=== PATIENT | female | born 1965 | race Caucasian/White ===

== ENCOUNTER → 2016-10-08 | Outpatient (CLI) | payer BC ==
--- NOTE | 2016-10-08 16:57 | US ---
EXAMINATION TYPE: US thyroid st tissue head/neck DATE OF EXAM: 10/08/2016 COMPARISON: Previous study dated 04/19/2016. CLINICAL HISTORY: E04.1 Nontoxic single thyroid nodule. GLAND SIZE: Right Lobe: 4.5 x 1.6 x 2.3 cm Overall Parenchyma: homogenous Left Lobe: 4.4 x 1.4 x 1.5 cm Overall Parenchyma: homogeneous Isthmus Thickness: 0.32 cm NODULES RIGHT: # of nodules measured on right: 2 1. .9 X .6 x .9 cm hypoechoic solid nodule at the mid pole with well-defined margins; This nodule i s wider than tall and shows intranodular vascularity. Prior size: 1.0 x .6 x .9 cm 2. .3 X .2 x .2 cm hypoechoic solid nodule at the mid pole with well-defined margins. This nodule is wider than tall and shows intranodular vascularity. Prior size: .2 x .2 x .3 cm LEFT: # of nodules measured on left: 2 1. .3 X .2 x .4 cm hypoechoic cystic nodule at the upper pole with well-defined margins; This nodul e is wider than tall and shows intranodular vascularity. Prior size: .4 x .3 x .4 cm 2. .3 X .2 x .3 cm hypoechoic solid nodule at the mid pole with well-defined margins. This nodule i s wider than tall and shows intranodular vascularity. Prior size: .3 x .2 x .3 cm ISTHMUS: # of nodules measured in the isthmus: 0 Bilateral neck scanned, no evidence of lymphadenopathy. IMPRESSION: STABLE MULTINODULAR GOITER.
== END | disposition home or self-care (01) ==
LOC: RADUSWWP 14:05
PROVIDERS: ATTEND Family Medicine
DX: E04.2 Nontoxic multinodular goiter (principal)
CPT/HCPCS: 76536

== ENCOUNTER → 2016-10-11 | Outpatient (CLI) | payer BC ==
[2016-10-11 10:53] LABS: CH 34.2; CHCM 34.3; HCT 39.3 % (34.0-46.0); HDW 2.55; HGB 13.3 gm/dL (11.4-16.0); MCH 33.9 pg (25.0-35.0); MCHC 33.9 g/dL (31.0-37.0); MCV 100.2 fL (80.0-100.0); RBC 3.92 m/uL (3.80-5.40); RDW 12.7 % (11.5-15.5); WBC 6.1 k/uL (3.8-10.6)
[2016-10-11 11:06] LABS: Appearance,Urine Cloudy (Clear); Bacteria,Urine Rare /hpf; Bilirubin,Urine Negative (Negative); Glucose,Urine (UA) Negative (Negative); Ketones,Urine Trace (Negative); Leukocyte Esterase,Urine Negative (Negative); Mucus,Urine Rare /hpf; Nitrite,Urine Negative (Negative); Particle Count 6168; Protein,Urine 1+ (Negative); RBC,Urine 13 /hpf (0-5); Specific Gravity,Urine 1.021 (1.001-1.035); Squamous Epithelial Cell,Urine 16 /hpf (0-4); UA Billing (MACRO vs. MICRO) MICRO; WBC,Urine 1 /hpf (0-5)
[2016-10-11 11:12] LABS: ALT 32 U/L (9-52); AST 25 U/L (14-36); Alkaline Phosphatase 85 U/L (38-126); Anion Gap 10 mmol/L; Blood Urea Nitrogen 17 mg/dL (7-17); Carbon Dioxide 24 mmol/L (22-30); Chloride 107 mmol/L (98-107); Cholesterol 185 mg/dL (<200); Glucose 87 mg/dL (74-99); HDL Cholesterol 77 mg/dL (40-60); Non-African American GFR(MDRD) >60 (>60 ml/min/1.73 sqM); Potassium 4.2 mmol/L (3.5-5.1); Sodium 141 mmol/L (137-145); Total Bilirubin 0.9 mg/dL (0.2-1.3); Total Protein 7.2 g/dL (6.3-8.2); Triglycerides 159 mg/dL (<150)
[2016-10-11 12:00] LABS: Hepatitis C Virus IgG Ab Negative (Negative); Hepatitis C Virus IgG Index 0.01
[2016-10-11 14:04] LABS: Hemoglobin A1C 5.2 % (4.2-6.1)
== END | disposition home or self-care (01) ==
LOC: LABWHC1 10:21
PROVIDERS: ATTEND Family Medicine
DX: Z00.01 Encounter for general adult medical examination with abnormal findings (principal); R31.21 Asymptomatic microscopic hematuria
CPT/HCPCS: 36415; 80053; 80061; 81001; 82306; 83036; 84439; 84443; 85027; 86803; 87086

== ENCOUNTER 2016-11-08 10:07 | Day surgery (SDC) | payer BC ==
[2016-11-05 11:01] VITALS: BMI 30.9
[~2016-11-08 10:07] MED LIST: LACTATED RINGERS 1,000 ML IV SCH
[2016-11-08] MEDS ORDERED: LACTATED RINGERS 1,000 ML IV ONE (10:30)
[2016-11-08] MEDS ORDERED: LIDOCAINE 1% 20 ML VIAL (10MG/ML) FOR IV START INTRADERMA ONE (10:31)
[2016-11-08 10:35] VITALS: RESP 18
[2016-11-08] MEDS ORDERED: PROPOFOL 10 MG/ML 20 ML VIAL IV ONE (11:34)
--- NOTE | 2016-11-08 12:12 | P.PCN ---
Date of Procedure: 11/08/16 Preoperative Diagnosis: Postoperative Diagnosis: Procedure(s) Performed: BRIEF HISTORY: Patient is a 50-year-old pleasant white female, scheduled for an elective colonoscopy as a part of screening for colorectal neoplasia. PROCEDURE PERFORMED: Colonoscopy. PREOPERATIVE DIAGNOSIS: Screening for colon cancer. IV sedation per Anesthesia. PROCEDURE: After informed consent was obtained, the patient, was brought into the endoscopy unit. IV sedation was administered by Anesthesia under continuous monitoring. Digital rectal examination was normal. Initially the Olympus CF- 160 flexible video colonoscope was then inserted in the rectum, gradually advanced into the sigmoid colon and further advancement was not possible because of acute angle duration and this area. The scope was removed and a pediatric colonoscope was then increased the rectum and with moderate to severe difficulty and was gradually advanced into the cecum. Careful examination was performed as the scope was gradually being withdrawn. Ileocecal valve and the appendiceal orifice were visualized and appeared normal. Prep was excellent. Mucosa of the cecum, ascending colon, transverse colon, descending colon, sigmoid colon, and rectum appeared normal. Retroflexion was performed in the rectum and no lesions were seen. The patient tolerated the procedure well. IMPRESSION: Normal-appearing colon from rectum to cecum with no evidence of colorectal neoplasia . RECOMMENDATIONS: Findings of this examination were discussed with the patient as well as a family. She was advised to have a repeat screening colonoscopy in 10 years. Implants: Indications for Procedure: Operative Findings: Description of Procedure:
[2016-11-08 13:17] VITALS: BP 143/67; PULSE 77
[2016-11-08 13:32] VITALS: TEMP 97.5
== END 2016-11-08 13:40 | disposition home or self-care (01) ==
LOC: ORWHC2ENDO 10:07
PROVIDERS: ATTEND Internal Medicine Gastroenterology
DX: Z12.11 Encounter for screening for malignant neoplasm of colon (principal); K57.30 Diverticulosis of large intestine without perforation or abscess without bleeding; K21.9 Gastro-esophageal reflux disease without esophagitis; K58.9 Irritable bowel syndrome, unspecified; I10 Essential (primary) hypertension; J45.909 Unspecified asthma, uncomplicated; Z79.82 Long term (current) use of aspirin; Z79.899 Other long term (current) drug therapy; Z88.0 Allergy status to penicillin; Z88.2 Allergy status to sulfonamides; Z87.891 Personal history of nicotine dependence
CPT/HCPCS: J2704; G0121

== ENCOUNTER → 2017-09-17 | Outpatient (CLI) | payer BC ==
--- NOTE | 2017-09-17 07:36 | MR ---
EXAMINATION TYPE: MR ankle RT wo con DATE OF EXAM: 09/17/2017 COMPARISON: NONE HISTORY: Right ankle pain and instability Standard multiplanar, multisequence MRI of the right ankle was obtained per departmental protocol. FINDINGS: Coronal images are suboptimal due to patient motion. There is a subtle short segment split tear at the level of the medial malleolus of the peroneus longu s with thickening and surrounding fluid of the tendon sheath. There is mild tendinosis of the peroneu s brevis additionally as there is fluid also around the tendon sheath. Minimal tendinosis is also see n of the flexor digitorum longus and flexor hallucis longus no similar findings. Extensor tendons are unremarkable. Achilles tendon and plantar fascia are also unremarkable. There is abnormal bone marrow signal within the base of the third metatarsal extending in the proxima l metatarsal diaphysis as well as within the fourth metatarsal metaphysis and proximal diaphysis and the third cuneiform. No distinct fracture line is identified. There is a partial thickness tear of the anterior talofibular ligament with surrounding small joint e ffusion. Posterior talofibular ligament and deltoid ligament as well as the spring ligaments are inta ct. Nonspecific subcutaneous edema is seen of the lateral distal midfoot and forefoot in its visualized p ortions. Sinus tarsus appears unremarkable. Lisfranc ligament appears intact. Alignment is intact. Sm all plantar enthesophyte is noted. IMPRESSION: 1. Abnormal bone marrow signal of the third cuneiform, base of the third metatarsal and proximal aspe ct of the third metatarsal, and proximal fourth metatarsal without fracture line. Therefore these cou ld relate to osseous contusion or stress injury. There is mild overlying subcutaneous edema. 2. Partial-thickness tear of the anterior talofibular ligament with few fibers remaining and surround ing small joint effusion. 3. Short segment split tear at the level of the medial malleolus of the peroneus longus. 4. Mild tendinosis of the candida is longus, peroneus brevis, flexor digitorum longus and flexor hallu cis longus.
== END | disposition home or self-care (01) ==
LOC: RADMRIMAIN 06:26
PROVIDERS: ATTEND Podiatrist Foot & Ankle Surgery
DX: S93.491A Sprain of other ligament of right ankle, initial encounter (principal); M67.873 Other specified disorders of tendon, right ankle and foot; R93.7 Abnormal findings on diagnostic imaging of other parts of musculoskeletal system

== ENCOUNTER → 2018-01-13 | Outpatient (CLI) | payer BC ==
--- NOTE | 2018-01-14 07:44 | MM ---
Reason for exam: clinical finding. Last mammogram was performed 2 years and 10 months ago. History: Patient is postmenopausal. Family history of breast cancer in maternal aunt at age 52. Took hormonal contraceptives for 15 years beginning at age 16. Taking estrogen for 1 year. Indicated problem(s): palpable abnormality and pain in the right breast. 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 MG Diagnostic Mammo w CAD LELIA Bilateral CC and MLO view(s) were taken. Prior study comparison: February 28, 2015, bilateral MG 3d screening mammo w/cad. May 06, 2013, bilateral digital screening mammo w/CAD. The breast tissue is heterogeneously dense. This may lower the sensitivity of mammography. No significant new findings when compared with previous films. These results were verbally communicated with the patient and result sheet given to the patient on 01/13/18. ASSESSMENT: Benign, BI-RAD 2 RECOMMENDATION: Routine screening mammogram of both breasts in 1 year.
--- NOTE | 2018-01-14 07:46 | USB ---
Reason for exam: clinical finding. History: Patient is postmenopausal. Family history of breast cancer in maternal aunt at age 52. Took hormonal contraceptives for 15 years beginning at age 16. Taking estrogen for 1 year. Indicated problem(s): palpable abnormality and pain in the right breast. US Breast RT Right complete breast ultrasound includes all four quadrants, the retroareolar region and axilla. Finding demonstrates a 0.8 x 0.9 x 0.4cm oval, mixed lesion at 12 o'clock, a 0.4 x 0.4 x 0.2cm oval, lobular lesion too small to characterize at 2 o'clock, a 0.6 x 0.5 x 0.3cm irregular, cystic lesion at 9 o'clock, duct ectasia at 11 o'clock and posterior nipple. These results were verbally communicated with the patient and result sheet given to the patient on 01/13/18. ASSESSMENT: Probably benign, BI-RAD 3 RECOMMENDATION: Ultrasound of the right breast in 6 months.
== END | disposition home or self-care (01) ==
LOC: RADMAMWWP 13:41
PROVIDERS: ATTEND Obstetrics & Gynecology
DX: N64.4 Mastodynia (principal)
CPT/HCPCS: 77066

== ENCOUNTER → 2018-01-13 | Outpatient (CLI) | payer BC ==
[2018-01-13 16:14] LABS: HCT 35.8 % (34.0-46.0); HGB 12.1 gm/dL (11.4-16.0); MCH 33.1 pg (25.0-35.0); MCHC 33.9 g/dL (31.0-37.0); MCV 97.8 fL (80.0-100.0); Mean Platelet Volume 7.8; Platelet Count 244 k/uL (150-450); RBC 3.66 m/uL (3.80-5.40); RDW 12.4 % (11.5-15.5); WBC 7.8 k/uL (3.8-10.6)
[2018-01-13 16:31] LABS: ALT 28 U/L (9-52); AST 30 U/L (14-36); Anion Gap 8 mmol/L; Blood Urea Nitrogen 22 mg/dL (7-17); Calcium 9.9 mg/dL (8.4-10.2); Carbon Dioxide 28 mmol/L (22-30); Chloride 102 mmol/L (98-107); Glucose 76 mg/dL (74-99); Potassium 3.7 mmol/L (3.5-5.1); Sodium 138 mmol/L (137-145)
[2018-01-13 16:45] LABS: T4, Free (Free Thyroxine) 0.86 ng/dL (0.78-2.19)
== END | disposition home or self-care (01) ==
LOC: LABWHC1 13:44
PROVIDERS: ATTEND Family Medicine
DX: E04.9 Nontoxic goiter, unspecified (principal); I10 Essential (primary) hypertension
CPT/HCPCS: 36415; 80048; 84439; 84443; 84450; 84460; 85027

== ENCOUNTER → 2018-01-28 | Outpatient (CLI) | payer OTHER ==
--- NOTE | 2018-01-28 16:58 | XR ---
EXAMINATION TYPE: XR Hip Complete LT DATE OF EXAM: 01/28/2018 COMPARISON: NONE HISTORY: Hip pain TECHNIQUE: 2 views FINDINGS: I see no fracture nor dislocation. Hip joint space is normal. Sacroiliac joint appears norm al. IMPRESSION: Normal left hip exam
== END | disposition home or self-care (01) ==
LOC: RADXRMAIN 16:37
PROVIDERS: ATTEND Emergency Medicine
DX: M25.552 Pain in left hip (principal)
CPT/HCPCS: 73502

== ENCOUNTER → 2018-03-09 | Outpatient (CLI) | payer BC ==
--- NOTE | 2018-03-09 22:52 | US ---
EXAMINATION TYPE: US thyroid st tissue head/neck DATE OF EXAM: 03/09/2018 COMPARISON: 10/08/2016 CLINICAL HISTORY: 52-year-old female E04.9 nontoxic nodular goiter. Follow up thyroid nodules, histor y of thyroid FNA TECHNIQUE: Multiple sonographic images of the thyroid gland are obtained. FINDINGS: GLAND SIZE: Right Lobe: 4.4 x 1.8 x 1.8 cm Overall Parenchyma: homogenous Left Lobe: 3.9 x 1.5 x 1.4 cm Overall Parenchyma: homogeneous Isthmus Thickness: 0.4 cm NODULES RIGHT: # of nodules measured on right: 2 1. 0.9 X 0.6 x 0.9 cm hypoechoic solid nodule at the mid pole with well-defined margins. This nodul e is wider than tall and shows intranodular vascularity. Prior size: 0.9 x 0.6 x 0.9 cm 2. 0.3 X 0.2 x 0.3 cm hypoechoic solid nodule at the mid pole with well-defined margins. This nodule is wider than tall and shows intranodular vascularity. Prior size: 0.3 x 0.2 x 0.2 cm LEFT: # of nodules measured on left: 2 1. 6 x 4 x 3 mm elongated cystic nodule at the mid to upper pole with well-defined margins. Possible colloid cyst. This nodule is wider than tall and shows intranodular vascularity. Prior size: 4 x 3 x 2 mm 2. 5 x 4 x 3 mm hypoechoic solid nodule at the mid pole with well-defined margins. This nodule is wid er than tall and shows intranodular vascularity. Prior size: 3 x 3 x 2 mm ISTHMUS: # of nodules measured in the isthmus: 0 Bilateral neck scanned, no evidence of lymphadenopathy. IMPRESSION: 2 nodules on each side, dominant nodule measuring 9 mm on the right is not significantly changed. Sec ond largest nodule measures 6 mm and may represent a colloid cyst of the left.
== END | disposition home or self-care (01) ==
LOC: RADUSWWP 13:36
PROVIDERS: ATTEND Family Medicine
DX: E04.2 Nontoxic multinodular goiter (principal)
CPT/HCPCS: 76536

== ENCOUNTER → 2018-09-15 | Outpatient (CLI) | payer BC ==
[2018-09-15 12:32] LABS: HCT 38.9 % (34.0-46.0); HGB 12.9 gm/dL (11.4-16.0); MCH 31.6 pg (25.0-35.0); MCHC 33.3 g/dL (31.0-37.0); MCV 94.9 fL (80.0-100.0); Mean Platelet Volume 8.6; Platelet Count 243 k/uL (150-450); RBC 4.09 m/uL (3.80-5.40); RDW 12.7 % (11.5-15.5); WBC 5.9 k/uL (3.8-10.6)
[2018-09-15 15:55] LABS: LDL Cholesterol,Calculated 93.6 mg/dL (0.0-131.0); Potassium 4.2 mmol/L (3.5-5.5); VLDL Calculation 24.4 mg/dL (5.00-40.00)
== END ==
LOC: LABWHC1 10:09
PROVIDERS: ATTEND Family Medicine
DX: I10 Essential (primary) hypertension (principal); E78.00 Pure hypercholesterolemia, unspecified
CPT/HCPCS: 36415; 80048; 80061; 84450; 84460; 85027

== ENCOUNTER → 2019-03-04 | Outpatient (CLI) | payer BC ==
--- NOTE | 2019-03-04 13:43 | US ---
EXAMINATION TYPE: US thyroid st tissue head/neck DATE OF EXAM: 03/04/2019 COMPARISON: US CLINICAL HISTORY: E04.9 NONTOXIC GOITER. GLAND SIZE: Right Lobe: 3.7 x 1.6 x 1.8 cm Overall Parenchyma: homogenous Left Lobe: 4.5 x 1.7 x 1.7 cm Overall Parenchyma: homogeneous Isthmus Thickness: 0.5 cm NODULES RIGHT: # of nodules measured on right: 2 1. 0.8 X 0.6 x 0.9 cm isoechoic solid nodule at the upper pole with well-defined margins; present w ith microcalcifications. This nodule is wider than tall and shows intranodular vascularity. Prior size: 0.9 x 0.6 x 0.9 cm 2. 0.3 X 0.2 x 0.3 cm hypoechoic solid nodule at the upper pole with well-defined margins; . This n odule is wider than tall and shows no intranodular vascularity. Prior size: 0.2 x 0.2 x 0.3 cm LEFT: # of nodules measured on left: 2 1. 0.5 X 0.3 x 0.5 cm hypoechoic cystic nodule at the upper pole with well-defined margins; . This nodule is wider than tall and shows no intranodular vascularity. Prior size: 0.5 x 0.3 x 0.4 cm 2. 0.3 X 0.3 x 0.4 cm hypoechoic solid nodule at the upper pole with well-defined margins; . This n odule is wider than tall and shows no intranodular vascularity. Prior size: 0.4 x 0.3 x 0.6 cm ISTHMUS: # of nodules measured in the isthmus: 0 Bilateral neck scanned. Bilateral nodes noted, largest measures 1.6 x 0.4 cm on the right. IMPRESSION: Stable nonspecific nodularity.
--- NOTE | 2019-03-04 14:38 | MM ---
Reason for exam: additional evaluation requested from prior study. Last mammogram was performed 1 year and 2 months ago. History: Patient is postmenopausal. Family history of breast cancer in maternal aunt at age 52. Took hormonal contraceptives for 15 years beginning at age 16. Taking estrogen for 1 year. MG Diagnostic Mammo w CAD LELIA Bilateral CC and MLO view(s) were taken. Prior study comparison: January 13, 2018, bilateral MG diagnostic mammo w CAD LELIA. February 28, 2015, bilateral MG 3d screening mammo w/cad. The breast tissue is heterogeneously dense. This may lower the sensitivity of mammography. There is chronic nodularity bilaterally. No significant new findings when compared with previous films. These results were verbally communicated with the patient and result sheet given to the patient on 03/04/19. ASSESSMENT: Benign, BI-RAD 2 RECOMMENDATION: Routine screening mammogram of both breasts in 1 year.
== END ==
LOC: RADUSWWP 13:11
PROVIDERS: ATTEND Family Medicine
DX: R92.8 Other abnormal and inconclusive findings on diagnostic imaging of breast (principal); E04.9 Nontoxic goiter, unspecified
CPT/HCPCS: 76536; 77066

== ENCOUNTER → 2019-03-20 | Outpatient (CLI) | payer BC ==
[2019-03-20 10:33] LABS: HCT 38.1 % (34.0-46.0); HGB 13.1 gm/dL (11.4-16.0); MCH 33.3 pg (25.0-35.0); MCHC 34.5 g/dL (31.0-37.0); MCV 96.6 fL (80.0-100.0); Mean Platelet Volume 7.9; Platelet Count 244 k/uL (150-450); RBC 3.94 m/uL (3.80-5.40); RDW 12.1 % (11.5-15.5)
[2019-03-20 11:25] LABS: Appearance,Urine Clear (Clear); Bilirubin,Urine Negative (Negative); Blood,Urine Small (Negative); Color,Urine Yellow; Glucose,Urine (UA) Negative (Negative); Ketones,Urine Negative (Negative); Leukocyte Esterase,Urine Negative (Negative); Mucus,Urine Rare /hpf; Nitrite,Urine Negative (Negative); PH, Urine 6.5 (5.0-8.0); Protein,Urine Negative (Negative); RBC,Urine 6 /hpf (0-5); Specific Gravity,Urine 1.015 (1.001-1.035); Squamous Epithelial Cell,Urine 2 /hpf (0-4); Urobilinogen,Urine <2.0 mg/dL (<2.0)
[2019-03-20 17:15] LABS: African American GFR (CKD) 126.3 (60.0-200.0); Albumin 4.3 g/dL (3.80-4.90); Albumin/Globulin Ratio 2.15 (1.60-3.17); Calcium 9.6 mg/dL (8.7-10.3); Chol/HDL Ratio 2.43; LDL Cholesterol,Calculated 69.6 mg/dL (0.0-131.0); Potassium 4.3 mmol/L (3.5-5.5); Total Bilirubin 0.5 mg/dL (0.3-1.2); Total Protein 6.3 g/dL (6.2-8.2); VLDL Calculation 36.4 mg/dL (5.00-40.00)
[2019-03-20 17:35] LABS: T4, Free (Free Thyroxine) 0.9 ng/dL (0.80-1.80)
[2019-03-22 10:19] LABS: Hemoglobin A1C 5.2 % (4.0-6.0)
== END | disposition home or self-care (01) ==
LOC: LABWHC1 09:45
PROVIDERS: ATTEND Family Medicine
DX: Z00.01 Encounter for general adult medical examination with abnormal findings (principal); E04.2 Nontoxic multinodular goiter; E66.3 Overweight
CPT/HCPCS: 36415; 80053; 80061; 81001; 82306; 83036; 84439; 84443; 85027

== ENCOUNTER → 2019-11-02 | Outpatient (CLI) | payer BC ==
--- NOTE | 2019-11-02 15:17 | US ---
EXAMINATION TYPE: US thyroid st tissue head/neck DATE OF EXAM: 11/02/2019 COMPARISON: NONE CLINICAL HISTORY: E04.9 NONTOXIC GOITER. GLAND SIZE: Right Lobe: cm Overall Parenchyma: Left Lobe: cm Overall Parenchyma: Isthmus Thickness: cm NODULES RIGHT: # of nodules measured on right: 1. X x cm nodule at the pole with margins; . This nodule is and shows . Prior size: x x cm 2. X x cm nodule at the pole with margins; . This nodule is and shows . Prior size: x x cm 3. X x cm nodule at the pole with margins; . This nodule is and shows . Prior size: x x cm 4. X x cm nodule at the pole with margins; . This nodule is and shows . Prior size: x x cm LEFT: # of nodules measured on left: 1. X x cm nodule at the pole with margins; . This nodule is and shows . Prior size: x x cm 2. X x cm nodule at the pole with margins; . This nodule is and shows . Prior size: x x cm 3. X x cm nodule at the pole with margins; . This nodule is and shows . Prior size: x x cm 4. X x cm nodule at the pole with margins; . This nodule is and shows . Prior size: x x cm ISTHMUS: # of nodules measured in the isthmus: 1. X x cm nodule at the pole with margins; . This nodule is and shows . Prior size: x x cm Bilateral neck scanned, no evidence of lymphadenopathy. IMPRESSION: EXAMINATION TYPE: US thyroid st tissue head/neck DATE OF EXAM: 11/02/2019 COMPARISON: NONE CLINICAL HISTORY: E04.9 NONTOXIC GOITER. GLAND SIZE: Right Lobe: 4.0 x 2.1 x 1.8 cm Overall Parenchyma: homogenous Left Lobe: 4.7 x 1.0 x 1.5 cm Overall Parenchyma: homogeneous Isthmus Thickness: 0.2 cm NODULES RIGHT: # of nodules measured on right: 2 1. 0.7 x 0.5 x 0.7 cm isoechoic solid nodule at the mid pole with well-defined margins. This nodule is wider than tall and shows intranodular vascularity. Prior size: 0.8 x 0.6 x 0.9 cm 2. 0.2 X 0.2 x 0.2 cm hypoechoic solid nodule at the mid pole with well-defined margins. This nodul e is wider than tall and shows no intranodular vascularity. Prior size: 0.3 x 0.2 x 0.3 cm LEFT: # of nodules measured on left: 1 1. 0.4 X 0.3 x 0.3 cm anechoic cystic nodule at the upper pole with well-defined margins. This nod ule is wider than tall and shows no intranodular vascularity. Prior size: 0.5 x 0.3 x 0.5 cm ISTHMUS: # of nodules measured in the isthmus: 0 Bilateral neck scanned, no evidence of lymphadenopathy. Previous subcentimeter nodule seen on left not seen on today's ultrasound. IMPRESSION: 1. Bilateral subcentimeter nodules. 2. A new subcentimeter nodule may be present on the left.
== END | disposition home or self-care (01) ==
LOC: RADUSWWP 13:12
PROVIDERS: ATTEND Family Medicine
DX: E04.2 Nontoxic multinodular goiter (principal)
CPT/HCPCS: 76536

== ENCOUNTER → 2020-01-04 | Outpatient (CLI) | payer BC ==
[2020-01-04 11:28] LABS: HCT 41.4 % (34.0-46.0); HGB 13.3 gm/dL (11.4-16.0); MCH 32.4 pg (25.0-35.0); MCHC 32.2 g/dL (31.0-37.0); MCV 100.6 fL (80.0-100.0); Mean Platelet Volume 8.5; Platelet Count 231 k/uL (150-450); RBC 4.12 m/uL (3.80-5.40); RDW 12.1 % (11.5-15.5); WBC 8.9 k/uL (3.8-10.6)
[2020-01-04 18:57] LABS: African American GFR (CKD) 118.1 (60.0-200.0); Anion Gap 6.6 mmol/L (4.00-12.00); BUN/Creat Ratio 21.67 Ratio (12.00-20.00); Calcium 9.6 mg/dL (8.7-10.3); Carbon Dioxide 27.4 mmol/L (21.6-31.8); Chol/HDL Ratio 2.63; LDL Cholesterol,Calculated 81.8 mg/dL (0.0-131.0); Non-African American GFR(CKD) 101.9 (60.0-200.0); Potassium 4.3 mmol/L (3.5-5.5); VLDL Calculation 37.2 mg/dL (5.00-40.00)
[2020-01-04 19:06] LABS: T4, Free (Free Thyroxine) 0.9 ng/dL (0.80-1.80)
== END | disposition home or self-care (01) ==
LOC: LABWHC1 09:46
PROVIDERS: ATTEND Family Medicine
DX: E04.9 Nontoxic goiter, unspecified (principal); E78.00 Pure hypercholesterolemia, unspecified; I10 Essential (primary) hypertension
CPT/HCPCS: 36415; 80048; 80061; 84439; 84443; 84450; 84460; 85027

== ENCOUNTER → 2020-04-11 | Outpatient (CLI) | payer BC ==
--- NOTE | 2020-04-11 15:07 | CT ---
EXAMINATION TYPE: CT urogram wo/w con DATE OF EXAM: 04/11/2020 COMPARISON: 08/31/2012 HISTORY: Right flank pain. CT DLP: 2642 mGycm CONTRAST: Performed and without and with IV Contrast, patient injected with 100 mL of Isovue M300. CT Urography was performed with unenhanced followed by enhanced images of the kidneys, ureters and ur inary bladder. Delayed images were obtained. 3d reconstruction was performed at a separate work sta tion. FINDINGS: KIDNEYS/BLADDER: No hydronephrosis. No nephrolithiasis. No distinct renal mass. Urinary bladder gr ossly unremarkable. LUNG BASES-: No visible nodule. No infiltrate. There is a moderate fixed hiatal hernia identified. LIVER/GB: No calcified gallstones. No space occupying hepatic lesion. Biliary tree is of normal ca liber. PANCREAS: No inflammation. No distinct mass. SPLEEN: No splenic enlargement. No lesion seen. ADRENALS: No nodule. No thickening. BOWEL: Normal appendix. Normal bowel caliber. No inflammation. GENITAL ORGANS: No gross abnormality. LYMPH NODES: No greater than 1cm abdominal or pelvic lymph nodes are appreciated. AORTA: No significant abnormality. OSSEOUS STRUCTURES: No significant abnormality is seen. OTHER: No significant additional abnormality is seen. IMPRESSION: 1. No renal pathology identified.
== END | disposition home or self-care (01) ==
LOC: RADCTMAIN 13:11
PROVIDERS: ATTEND Family Medicine
DX: R10.9 Unspecified abdominal pain (principal)
CPT/HCPCS: 74178; 74400; Q9967

== ENCOUNTER → 2020-12-15 | Outpatient (CLI) | payer BC ==
[2020-12-15 16:52] LABS: HCT 38.4 % (37.2-46.3); HGB 12.9 g/dL (12.0-15.0); MCH 32.9 pg (27.0-32.0); MCHC 33.6 g/dL (32.0-37.0); Mean Platelet Volume 11.7 fL (9.5-12.2); Platelet Count 245 X 10*3/uL (140-440); RBC 3.92 X 10*6/uL (4.10-5.20); RDW 12.1 % (11.5-14.5)
[2020-12-15 19:32] LABS: African American GFR (CKD) 117.3 (60.0-200.0); Anion Gap 9.7 mmol/L (4.00-12.00); BUN/Creat Ratio 33.33 Ratio (12.00-20.00); Calcium 9.4 mg/dL (8.7-10.3); Carbon Dioxide 25.3 mmol/L (21.6-31.8); Chol/HDL Ratio 3.04; LDL Cholesterol,Calculated 121.4 mg/dL (0.0-131.0); Non-African American GFR(CKD) 101.2 (60.0-200.0); Potassium 4.3 mmol/L (3.5-5.5); VLDL Calculation 23.6 mg/dL (5.00-40.00)
[2020-12-15 20:34] LABS: Hemoglobin A1C 5.1 % (4.0-6.0)
== END | disposition home or self-care (01) ==
LOC: LABWHC1 09:05
PROVIDERS: ATTEND Family Medicine
DX: E78.00 Pure hypercholesterolemia, unspecified (principal); E66.3 Overweight; I10 Essential (primary) hypertension
CPT/HCPCS: 36415; 80048; 80061; 83036; 84450; 84460; 85027

== ENCOUNTER 2024-01-04 23:52 | Emergency (ER) | payer BC, OTHER ==
[2024-01-05 00:05] VITALS: TEMP 97.8
--- NOTE | 2024-01-05 02:08 | ED ---
General Adult HPI - General Chief complaint: Fall Stated complaint: Arm Injury Time Seen by Provider: 01/05/24 00:05 Source: patient Mode of arrival: ambulatory Limitations: no limitations - History of Present Illness Initial comments: 58-year-old female presents as a transfer from [facility]. Patient was ambulating when she tripped on a low ridge and fell onto concrete. She fell on an outstretched right hand. She sustained a right wrist fracture. This was reduced at [facility]. They did not have hand orthopedics for follow- up and therefore transferred the patient to our hospital. Patient arrives in a sugar-tong splint. She has pain which is controlled. She denies any numbness or tingling into her fingers. No other injury sustained. No other alleviating, precipitating or modifying factors - Related Data Home Medications Medication Instructions Recorded Confirmed Atorvastatin [Lipitor] 10 mg PO HS 04/04/15 11/05/16 Cetirizine HCl [Zyrtec] 10 mg PO DAILY 04/04/15 11/05/16 HYDROcodone/APAP 10-325MG [[place] 1 tab PO Q6H PRN 04/04/15 11/05/16 10-325] Omeprazole [PriLOSEC] 20 mg PO AC-BRKFST 04/04/15 11/05/16 Venlafaxine HCl ER [Effexor Xr] 150 mg PO DAILY 04/04/15 11/05/16 Verapamil HCl [Verelan] 180 mg PO BID 04/04/15 11/05/16 hydroCHLOROthiazide [Hydrodiuril] 25 mg PO DAILY 04/04/15 11/05/16 lisinopriL [Zestril] 5 mg PO BID 04/04/15 11/05/16 ALPRAZolam [Xanax] 0.5 mg PO BID PRN 11/05/16 11/05/16 Aspirin [Adult Low Dose Aspirin EC] 81 mg PO DAILY 11/05/16 11/05/16 Multivitamins, Thera [Multivitamin 1 tab PO DAILY 11/05/16 11/05/16 (formulary)] Potassium 99 mg PO DAILY 11/05/16 11/05/16 Venlafaxine HCl [Effexor] 75 mg PO DAILY 11/05/16 11/05/16 estradioL [Estrace] 1 mg PO DAILY 11/05/16 11/05/16 Previous Rx's Medication Instructions Recorded HYDROcodone/APAP 7.5-325MG [[place] 1 tab PO Q4HR PRN 3 Days #18 tab 01/05/24 7.5-325] Allergies Allergy/AdvReac Type Severity Reaction Status Date / Time perfume Allergy Dyspnea Verified 11/05/16 10:48 Sulfa (Sulfonamide Allergy Rash/Hives Verified 11/05/16 10:48 Antibiotics) codeine AdvReac made skin Verified 11/05/16 10:48 crawl Penicillins AdvReac Diarrhea Verified 11/05/16 10:48 Review of Systems ROS Statement: Those systems with pertinent positive or pertinent negative responses have been documented in the HPI. ROS Other: All systems not noted in ROS Statement are negative. Past Medical History Past Medical History: COPD, GERD/Reflux, Hyperlipidemia, Hypertension, Osteoarthritis (OA), Thyroid Disorder Additional Past Medical History / Comment(s): colitis with IBS, goiters, History of Any Multi-Drug Resistant Organisms: None Reported Past Surgical History: Back Surgery, Hysterectomy, Orthopedic Surgery, Tubal Ligation Additional Past Surgical History / Comment(s): eye surgery as child, sinus surgery, colonoscopy, lasik eye surgery, right ankle ortho and bilateral knee. Past Anesthesia/Blood Transfusion Reactions: Motion Sickness Past Psychological History: Anxiety Smoking Status: Never smoker Past Alcohol Use History: Occasional Past Drug Use History: None Reported - Past Family History Mother Family Medical History: Cancer General Exam Limitations: no limitations General appearance: alert Head exam: Present: atraumatic, normocephalic, normal inspection Eye exam: Present: normal appearance, PERRL, EOMI. Absent: scleral icterus, conjunctival injection, periorbital swelling ENT exam: Present: normal exam, mucous membranes moist Extremities exam: Present: other (Sugar-tong splint to the right hand and forearm. Cap refill of fingers is less than 3 seconds. She is able to move all fingers equally. Intact sensation in the median, radial and ulnar nerve distributions) Course Vital Signs 01/05/24 01/05/24 00:01 03:06 Temperature 97.8 F Pulse Rate 80 78 Respiratory 20 16 Rate Blood Pressure 143/73 148/75 O2 Sat by Pulse 95 96 Oximetry Medical Decision Making - Medical Decision Making Was pt. sent in by a medical professional or institution (Dr., PA, TMD TEACHER ASSISTANT, urgent care, hospital, or intermediate...) When possible be specific @ -Patient was sent over from [facility] Did you speak to anyone other than the patient for history (EMS, parent, family, police, friend...)? What history was obtained from this source @ -I spoke with the transferring physician Did you review nursing and triage notes (agree or disagree)? Why? @ -I reviewed and agree with nursing and triage notes Were old charts reviewed (outside hosp., previous admission, EMS record, old EKG, old radiological studies, urgent care reports/EKG's, intermediate records)? Report findings @ -I reviewed the report from [facility] emergency department which was completed earlier today Differential Diagnosis (chest pain, altered mental status, abdominal pain women, abdominal pain men, vaginal bleeding, weakness, fever, dyspnea, syncope, headache, dizziness, GI bleed, back pain, seizure, CVA, palpatations, mental health, musculoskeletal)? @ -Differential Musculoskeletal Muscular strain, contusion, ligament sprain, fracture, arthritis, septic arthritis, bursitis, cellulitis, muscle spasm, nerve compression, DVT, arterial occlusion, herpes zoster, electrolyte abnormality, tumor.... This is not meant to be in all inclusive list EKG interpreted by me (3pts min.). @ -Not done X-rays interpreted by me (1pt min.). @ -None done CT interpreted by me (1pt min.). @ -None done U/S interpreted by me (1pt. min.). @ -None done What testing was considered but not performed or refused? (CT, X-rays, U/S, labs)? Why? @ -None What meds were considered but not given or refused? Why? @ -None Did you discuss the management of the patient with other professionals (professionals i.e. DORIS Dhaliwal, TMD TEACHER ASSISTANT, lab, RT, psych nurse, criminal justice social worker, rehabilitation inspector, teacher, investigation officer, case resource manager)? Give summary @ -I spoke with on-call orthopedist, Dr. Solano who states that he will see the patient in the office Was smoking cessation discussed for >3mins.? @ -No Was critical care preformed (if so, how long)? @ -No Were there social determinants of health that impacted care today? How? (Homelessness, low income, unemployed, alcoholism, drug addiction, transportation, low edu. Level, literacy, decrease access to med. care, halfway, rehab)? @ -No Was there de-escalation of care discussed even if they declined (Discuss DNR or withdrawal of care, Hospice)? DNR status @ -No What co-morbidities impacted this encounter? (DM, HTN, Smoking, COPD, CAD, Cancer, CVA, ARF, Chemo, Hep., AIDS, mental health diagnosis, sleep apnea, morbid obesity)? @ -None Was patient admitted / discharged? Hospital course, mention meds given and route, prescriptions, significant lab abnormalities, going to OR and other pertinent info. @ -Upon arrival patient seen and evaluated in room 19. Thorough history and physical exam was performed. X-rays are uploaded. I did call and speak with on-call orthopedist about the patient. Fracture reduction is acceptable at this point. He will follow-up with the patient in office. Patient is given his follow-up information. She does have pain medications at home to utilize. She is to call to make an appointment. Return for any new or worsening symptoms. Rest, ice and elevate the extremity. Patient agreeable plan was discharged in stable condition Undiagnosed new problem with uncertain prognosis? @ -No Drug Therapy requiring intensive monitoring for toxicity (Heparin, Nitro, Insulin, Cardizem)? @ -No Were any procedures done? @ -No Diagnosis/symptom? @ -Acute fall, acute right distal radius fracture Acute, or Chronic, or Acute on Chronic? @ -Acute Uncomplicated (without systemic symptoms) or Complicated (systemic symptoms)? @ -Uncomplicated Side effects of treatment? @ -No Exacerbation, Progression, or Severe Exacerbation? @ -No Poses a threat to life or bodily function? How? (Chest pain, USA, PA, pneumonia, PE, COPD, DKA, ARF, appy, cholecystitis, CVA, Diverticulitis, Homicidal, Suicidal, threat to staff... and all critical care pts) @ -No Disposition Clinical Impression: Fall, Wrist fracture, right Disposition: HOME SELF-CARE Condition: Stable Instructions (If sedation given, give patient instructions): Wrist Fracture in Adults (ED) Additional Instructions: Call the office in the morning to make an appointment. Let them know that you are in the emergency department and have a broken bone. Take the pain medications as needed. Rest, ice and elevated the extremity. Return for any new or worsening symptoms Prescriptions: HYDROcodone/APAP 7.5-325MG [[place] 7.5-325] 1 tab PO Q4HR PRN 3 Days #18 tab PRN Reason: Pain Is patient prescribed a controlled substance at d/c from ED?: Yes When asked, does pt state using other controlled substances?: No If prescribed controlled substance>3 days was MAPS reviewed?: Prescribed <3 Days If opioid is for acute pain is fill amount 7 days or less?: Yes Referrals: Johnie Amezcua DO [Primary Care Provider] - 1-2 days Alie Tamayo DO [Doctor of Osteopathic Medicine] - 1-2 days Time of Disposition: 02:21
[2024-01-05] MEDS: traMADol 50 MG STARTER PACK 3 TAB BTL PO STA (02:47)
[2024-01-05] MEDS: HYDROmorphone 1 MG/ML 1 ML SYRINGE IM STA (02:47)
[2024-01-05 03:07] VITALS: BP 148/75; PULSE 78; RESP 16
== END 2024-01-05 03:06 | disposition home or self-care (01) ==
LOC: EC 23:52
CPT/HCPCS: 96372; 99283